=== PATIENT | female | born 1945 | race Caucasian/White ===

== ENCOUNTER 2018-03-05 12:47 | Inpatient (IN) | payer MEDICARE, OTHER ==
[2018-03-05 14:08] LABS: ADD MAN DIFF? NO
[2018-03-05 14:14] LABS: WHITE BLOOD COUNT 13.2 10^3/ul (4.8-10.8)
[2018-03-05 14:14] LABS: BASOPHILS % 0.3 % (0.0-2.0); EOSINOPHILS % 0.2 % (0.0-7.0); HEMATOCRIT 34.9 % (37.0-47.0); HEMOGLOBIN 11.6 g/dl (12.0-16.0); LYMPHOCYTES # 1.3 10^3/ul (0.8-2.9); LYMPHOCYTES % 9.6 % (15.0-51.0); MEAN CORPUSCULAR HEMOGLOBIN 32.5 pg (29.0-33.0); MEAN CORPUSCULAR HGB CONC 33.2 g/dl (32.0-37.0); MEAN CORPUSCULAR VOLUME 97.8 fl (82.0-101.0); MEAN PLATELET VOLUME 7.9 fl (7.4-10.4); MONOCYTE # 0.7 10^3/ul (0.3-0.9); NEUTROPHILS % 83.3 % (39.0-77.0); PLATELET COUNT 333 10^3/UL (140-415); RED BLOOD COUNT 3.57 10^6/ul (4.20-5.40); RED CELL DISTRIBUTION WIDTH 14.4 % (11.5-14.5)
[2018-03-05 14:32] LABS: INR 1.29; PROTIME 16.3 Sec (11.9-14.9); PT RATIO 1.3
[2018-03-05 14:33] LABS: PARTIAL THROMBOPLASTIN TIME 40.7 Sec (23.0-35.0)
[2018-03-05 14:40] LABS: BLOOD UREA NITROGEN 11 mg/dl (7-20); CALCIUM 9.5 mg/dl (8.4-10.2); CARBON DIOXIDE 31 mmol/L (21-31); CHLORIDE 98 mmol/L (97-110); CREATININE 0.54 mg/dl (0.44-1.00); GLUCOSE 109 mg/dl (70-220); POTASSIUM 3.4 mmol/L (3.5-5.1); SODIUM 135 mmol/L (135-144)
[2018-03-05] MEDS: APIXABAN 5 MG TABLET PO (16:11)
[2018-03-05] MEDS ORDERED: ONDANSETRON 4 MG INJ IV (16:30)
[2018-03-05] MEDS ORDERED: ACETAMINOPHEN 325 MG TAB PO (16:30)
[2018-03-05] MEDS: LEVOFLOXACIN 250MG/D5W (PMX) 50 ML IVPB (21:14)
[2018-03-05] MEDS: ENOXAPARIN 30 MG/0.3 ML SYG SC (21:23)
[2018-03-06] MEDS ORDERED: ONDANSETRON 4 MG INJ IV
[2018-03-06] MEDS ORDERED: ACETAMINOPHEN 325 MG TAB PO
[2018-03-06] MEDS ORDERED: morphine 2 MG INJ IV
[2018-03-06] MEDS ORDERED: DOCUSATE SODIUM 100 MG CAP PO
[2018-03-06] MEDS: LORAZEPAM 2 MG INJ IV (00:03)
[2018-03-06] MEDS: PANTOPRAZOLE (EC) 40 MG TAB PO (05:38)
[2018-03-06] MEDS: LORAZEPAM 0.5 MG TAB PO (05:38)
[2018-03-06 05:58] LABS: ADD MAN DIFF? NO
[2018-03-06 06:05] LABS: BASOPHILS % 0.4 % (0.0-2.0); EOSINOPHILS # 0.1 10^3/ul (0.0-0.5); EOSINOPHILS % 0.9 % (0.0-7.0); HEMOGLOBIN 9.8 g/dl (12.0-16.0); LYMPHOCYTES # 1.1 10^3/ul (0.8-2.9); LYMPHOCYTES % 11.5 % (15.0-51.0); MEAN CORPUSCULAR HGB CONC 33.8 g/dl (32.0-37.0); MEAN CORPUSCULAR VOLUME 97.6 fl (82.0-101.0); MONOCYTE # 0.7 10^3/ul (0.3-0.9); MONOCYTES % 7.6 % (0.0-11.0); NEUTROPHILS % 76.2 % (39.0-77.0); PLATELET COUNT 308 10^3/UL (140-415); RED BLOOD COUNT 2.97 10^6/ul (4.20-5.40); RED CELL DISTRIBUTION WIDTH 14.6 % (11.5-14.5)
[2018-03-06 06:05] LABS: WHITE BLOOD COUNT 9.2 10^3/ul (4.8-10.8)
[2018-03-06 06:36] LABS: MAGNESIUM 1.6 mg/dl (1.7-2.5)
[2018-03-06 06:58] LABS: ALANINE AMINOTRANSFERASE 77 IU/L (13-69); ALBUMIN 2.5 g/dl (3.3-4.9); ALBUMIN/GLOBULIN RATIO 0.96; ALKALINE PHOSPHATASE 223 IU/L (42-121); ASPARTATE AMINO TRANSFERASE 66 IU/L (15-46); BILIRUBIN,INDIRECT 0.4 mg/dl (0-1.1); BILIRUBIN,TOTAL 0.4 mg/dl (0.2-1.3); BLOOD UREA NITROGEN 5 mg/dl (7-20); CALCIUM 8.6 mg/dl (8.4-10.2); CARBON DIOXIDE 27 mmol/L (21-31); CHLORIDE 104 mmol/L (97-110); CREATININE 0.48 mg/dl (0.44-1.00); GLUCOSE 98 mg/dl (70-220); POTASSIUM 3.5 mmol/L (3.5-5.1); SODIUM 138 mmol/L (135-144); TOTAL PROTEIN 5.1 g/dl (6.1-8.1)
[2018-03-06 09:40] LABS: ANION GAP 7 (5-13)
[2018-03-06] MEDS: ENOXAPARIN 30 MG/0.3 ML SYG SC ×2 (09:51→20:25)
[2018-03-06 10:02] LABS: ANION GAP 6 (5-13)
[2018-03-06] MEDS: DOXYCYCLINE 100 MG TAB PO (20:15)
[2018-03-07] MEDS: PANTOPRAZOLE (EC) 40 MG TAB PO (05:27)
[2018-03-07] MEDS: DOXYCYCLINE 100 MG TAB PO ×2 (08:41→20:31)
[2018-03-07] MEDS: ENOXAPARIN 30 MG/0.3 ML SYG SC (08:43)
[2018-03-07] MEDS: ENOXAPARIN 60 MG/0.6 ML SYG SC (20:32)
[2018-03-07] MEDS: LORAZEPAM 0.5 MG TAB PO (21:18)
[2018-03-07] MEDS: HALOPERIDOL 5 MG INJ IM (23:48)
[2018-03-08] MEDS: PANTOPRAZOLE (EC) 40 MG TAB PO (06:11)
[2018-03-08 07:15] LABS: WHITE BLOOD COUNT 5.8 10^3/ul (4.8-10.8)
[2018-03-08 07:15] LABS: ABNORMAL IP MESSAGE 1; HEMATOCRIT 29.2 % (37.0-47.0); HEMOGLOBIN 9.6 g/dl (12.0-16.0); MEAN CORPUSCULAR HEMOGLOBIN 32.2 pg (29.0-33.0); MEAN CORPUSCULAR HGB CONC 32.9 g/dl (32.0-37.0); MEAN PLATELET VOLUME 7.9 fl (7.4-10.4); PLATELET COUNT 425 10^3/UL (140-415); RED BLOOD COUNT 2.98 10^6/ul (4.20-5.40); RED CELL DISTRIBUTION WIDTH 14.5 % (11.5-14.5)
[2018-03-08 07:28] LABS: ADD MAN DIFF? YES; POSITIVE DIFF @See below
[2018-03-08 07:31] LABS: ANION GAP 2 (5-13); BLOOD UREA NITROGEN 10 mg/dl (7-20); CALCIUM 8.9 mg/dl (8.4-10.2); CARBON DIOXIDE 29 mmol/L (21-31); CHLORIDE 106 mmol/L (97-110); CREATININE 0.55 mg/dl (0.44-1.00); GLUCOSE 89 mg/dl (70-220); POTASSIUM 3.4 mmol/L (3.5-5.1); SODIUM 137 mmol/L (135-144)
[2018-03-08 08:27] LABS: ANISOCYTOSIS 1+ (0-0); BASOPHIL #M 0.1 10^3/ul (0.0-0.0); BASOPHILS % (M) 3 % (0-2); ERYTHROBLAST% (NRBC) (M) 1 % (0-0); LYMPHOCYTES #M 1.3 10^3/ul (0.8-2.9); LYMPHOCYTES % (M) 24 % (15-51); METAMYELOCYTES %M 1 % (0-0); MONOCYTE #M 0.4 10^3/ul (0.3-0.9); MONOCYTES % (M) 8 % (0-11); MYELOCYTES #M 0.1 10^3/ul (0.0-0.0); MYELOCYTES % (M) 3 % (0-0); PLATELET ESTIMATE INCREASED; POLYCHROMASIA 3+ (0-0); SEGMENTED NEUTROPHILS (M) % 61 % (39-77); SMUDGE%M 4 % (0-0)
[2018-03-08] MEDS: ENOXAPARIN 60 MG/0.6 ML SYG SC ×2 (09:00→20:36)
[2018-03-08] MEDS: DOXYCYCLINE 100 MG TAB PO ×2 (09:35→20:31)
[2018-03-08 10:57] LABS: ADD UMIC NO; UR ASCORBIC ACID NEGATIVE (NEGATIVE); UR BILIRUBIN (Dip) NEGATIVE (NEGATIVE); UR BLOOD (Dip) NEGATIVE (NEGATIVE); UR CLARITY CLEAR (CLEAR); UR COLOR YELLOW (YELLOW); UR GLUCOSE (Dip) NEGATIVE (NEGATIVE); UR KETONES (Dip) NEGATIVE (NEGATIVE); UR LEUKOCYTE ESTERASE (Dip) NEGATIVE Leu/ul (NEGATIVE); UR NITRITE (Dip) NEGATIVE (NEGATIVE); UR SPECIFIC GRAVITY (Dip) 1.006 (1.003-1.030); UR TOTAL PROTEIN (Dip) NEGATIVE (NEGATIVE); UR UROBILINOGEN (Dip) NEGATIVE (NEGATIVE)
[2018-03-08] MEDS: POTASSIUM CHLORIDE (SR) 20 MEQ TAB PO (15:30)
[2018-03-09] MEDS: PANTOPRAZOLE (EC) 40 MG TAB PO (06:01)
[2018-03-09] MEDS: DOXYCYCLINE 100 MG TAB PO ×2 (09:02→21:46)
[2018-03-09] MEDS: ENOXAPARIN 60 MG/0.6 ML SYG SC ×2 (09:14→21:50)
[2018-03-10] MEDS: PANTOPRAZOLE (EC) 40 MG TAB PO (05:58)
[2018-03-10] MEDS: ENOXAPARIN 60 MG/0.6 ML SYG SC (09:39)
== END 2018-03-10 18:11 | DRG 300 ==
LOC: 2NE 03-07 15:25 → E/R 12:47 → 2NE 16:19
DX: I82.412 Acute embolism and thrombosis of left femoral vein (principal); L03.116 Cellulitis of left lower limb; C19 Malignant neoplasm of rectosigmoid junction; F03.90 Unspecified dementia, unspecified severity, without behavioral disturbance, psychotic disturbance, mood disturbance, and anxiety; D63.8 Anemia in other chronic diseases classified elsewhere; Z79.01 Long term (current) use of anticoagulants; Z88.0 Allergy status to penicillin
CPT/HCPCS: 36415; 71045; 80048; 80053; 81003; 83735; 85025; 85610; 85730; 87040; 87086; 90686; 93971; 97110; 97116; 97161; 97530; 99285-25

== ENCOUNTER 2018-10-05 14:11 | Inpatient (IN) | payer MEDICARE, OTHER ==
[2018-10-05 14:46] LABS: ADD MAN DIFF? NO
[2018-10-05 14:50] LABS: BASOPHIL # 0.1 10^3/ul (0.0-0.1); BASOPHILS % 0.7 % (0.0-2.0); EOSINOPHILS # 0.2 10^3/ul (0.0-0.5); EOSINOPHILS % 2.9 % (0.0-7.0); HEMATOCRIT 42.4 % (37.0-47.0); HEMOGLOBIN 14.3 g/dl (12.0-16.0); LYMPHOCYTES # 0.8 10^3/ul (0.8-2.9); LYMPHOCYTES % 11.9 % (15.0-51.0); MEAN CORPUSCULAR HEMOGLOBIN 29.7 pg (29.0-33.0); MEAN CORPUSCULAR HGB CONC 33.7 g/dl (32.0-37.0); MEAN PLATELET VOLUME 8.1 fl (7.4-10.4); MONOCYTE # 0.4 10^3/ul (0.3-0.9); MONOCYTES % 5.8 % (0.0-11.0); NEUTROPHIL # 5.4 10^3/ul (1.6-7.5); NEUTROPHILS % 77.8 % (39.0-77.0); PLATELET COUNT 581 10^3/UL (140-415); RED BLOOD COUNT 4.82 10^6/ul (4.20-5.40); RED CELL DISTRIBUTION WIDTH 13.2 % (11.5-14.5)
[2018-10-05 14:50] LABS: WHITE BLOOD COUNT 6.9 10^3/ul (4.8-10.8)
[2018-10-05] MEDS: SOD CHLORIDE 0.9% 1,000 ML IV ×2 (14:55→17:51)
[2018-10-05 15:07] LABS: ALANINE AMINOTRANSFERASE 15 IU/L (13-69); ALBUMIN 3.7 g/dl (3.3-4.9); ALBUMIN/GLOBULIN RATIO 1.15; ALKALINE PHOSPHATASE 224 IU/L (42-121); ANION GAP 10 (5-13); ASPARTATE AMINO TRANSFERASE 48 IU/L (15-46); BILIRUBIN,INDIRECT 0.6 mg/dl (0-1.1); BILIRUBIN,TOTAL 0.6 mg/dl (0.2-1.3); BLOOD UREA NITROGEN 11 mg/dl (7-20); CALCIUM 10.1 mg/dl (8.4-10.2); CARBON DIOXIDE 26 mmol/L (21-31); CHLORIDE 99 mmol/L (97-110); CREATININE 0.94 mg/dl (0.44-1.00); GLUCOSE 112 mg/dl (70-220); POTASSIUM 5.2 mmol/L (3.5-5.1); SODIUM 135 mmol/L (135-144); TOTAL PROTEIN 6.9 g/dl (6.1-8.1)
[2018-10-05 15:11] LABS: INR 1.03; PROTIME 13.6 Sec (11.9-14.9); PT RATIO 1.1
[2018-10-05 15:12] LABS: PARTIAL THROMBOPLASTIN TIME 40.6 Sec (23.0-35.0)
[2018-10-05 15:19] LABS: TROPONIN-I < 0.012 ng/ml (0.000-0.120)
[2018-10-05 15:24] LABS: FREE THYROXINE INDEX (Calc) 1.29 ug/ml (0.65-3.89); T3 UPTAKE 26.3 % (23.5-40.5); T4 (THYROXINE) 4.9 ug/dl (5.5-11.0)
[2018-10-05] MEDS ORDERED: ONDANSETRON 4 MG INJ IV (18:00)
[2018-10-05] MEDS ORDERED: ACETAMINOPHEN 325 MG TAB PO (18:00)
[2018-10-05] MEDS ORDERED: NACL 0.9% 3 ML SYG IV (18:00)
[2018-10-05] MEDS: FAMOTIDINE 20 MG INJ IV (22:14)
[2018-10-06] MEDS: SOD CHLORIDE 0.9% 1,000 ML IV ×3 (01:51→16:46)
[2018-10-06 06:22] LABS: ADD MAN DIFF? NO
[2018-10-06 06:58] LABS: ANION GAP 8 (5-13); BLOOD UREA NITROGEN 8 mg/dl (7-20); CALCIUM 7.8 mg/dl (8.4-10.2); CARBON DIOXIDE 22 mmol/L (21-31); CHLORIDE 111 mmol/L (97-110); CREATININE 0.62 mg/dl (0.44-1.00); GLUCOSE 87 mg/dl (70-220); POTASSIUM 3.6 mmol/L (3.5-5.1); SODIUM 141 mmol/L (135-144)
[2018-10-06 07:16] LABS: BASOPHILS % 0.4 % (0.0-2.0); EOSINOPHILS # 0.3 10^3/ul (0.0-0.5); EOSINOPHILS % 3.2 % (0.0-7.0); HEMATOCRIT 33.3 % (37.0-47.0); HEMOGLOBIN 11.3 g/dl (12.0-16.0); LYMPHOCYTES # 0.7 10^3/ul (0.8-2.9); LYMPHOCYTES % 7.2 % (15.0-51.0); MEAN CORPUSCULAR HEMOGLOBIN 30.4 pg (29.0-33.0); MEAN CORPUSCULAR HGB CONC 33.9 g/dl (32.0-37.0); MEAN CORPUSCULAR VOLUME 89.5 fl (82.0-101.0); MEAN PLATELET VOLUME 8.3 fl (7.4-10.4); MONOCYTE # 0.5 10^3/ul (0.3-0.9); MONOCYTES % 5.9 % (0.0-11.0); NEUTROPHIL # 7.6 10^3/ul (1.6-7.5); NEUTROPHILS % 82.9 % (39.0-77.0); PLATELET COUNT 457 10^3/UL (140-415); RED BLOOD COUNT 3.72 10^6/ul (4.20-5.40); RED CELL DISTRIBUTION WIDTH 13.1 % (11.5-14.5)
[2018-10-06 07:16] LABS: WHITE BLOOD COUNT 9.2 10^3/ul (4.8-10.8)
[2018-10-06 07:46] LABS: HEMOGLOBIN A1C 5.3 % (0-5.9)
[2018-10-06] MEDS: FAMOTIDINE 20 MG INJ IV ×2 (09:22→21:48)
[2018-10-06] MEDS: ENOXAPARIN 30 MG/0.3 ML SYG SC (09:27)
[2018-10-06] MEDS: ONDANSETRON 4 MG INJ IV (12:15)
[2018-10-06] MEDS: LORAZEPAM 2 MG INJ IV (12:26)
[2018-10-06] MEDS: IOHEXOL 300MG/ML 150 ML BTL (12:59)
[2018-10-06] MEDS: SOD CHLORIDE 0.9% 100 ML (12:59)
[2018-10-06] MEDS: morphine 2 MG INJ IV (17:04)
[2018-10-07] MEDS: SOD CHLORIDE 0.9% 1,000 ML IV ×2 (00:31→09:51)
[2018-10-07 06:43] LABS: ANION GAP 5 (5-13); BLOOD UREA NITROGEN 4 mg/dl (7-20); CALCIUM 9.1 mg/dl (8.4-10.2); CARBON DIOXIDE 27 mmol/L (21-31); CHLORIDE 117 mmol/L (97-110); CREATININE 0.76 mg/dl (0.44-1.00); GLUCOSE 98 mg/dl (70-220); POTASSIUM 3.2 mmol/L (3.5-5.1); SODIUM 149 mmol/L (135-144)
[2018-10-07] MEDS: FAMOTIDINE 20 MG INJ IV ×2 (09:29→20:24)
[2018-10-07] MEDS: ENOXAPARIN 30 MG/0.3 ML SYG SC (09:34)
[2018-10-07] MEDS: D5W-0.45 NACL + KCL 20 MEQ 1,000 ML IV ×2 (11:06→21:07)
[2018-10-08 06:39] LABS: ANION GAP 8 (5-13); BLOOD UREA NITROGEN 3 mg/dl (7-20); CALCIUM 8.6 mg/dl (8.4-10.2); CARBON DIOXIDE 23 mmol/L (21-31); CHLORIDE 114 mmol/L (97-110); CREATININE 0.59 mg/dl (0.44-1.00); GLUCOSE 91 mg/dl (70-220); POTASSIUM 4.2 mmol/L (3.5-5.1); SODIUM 145 mmol/L (135-144)
[2018-10-08] MEDS: D5W-0.45 NACL + KCL 20 MEQ 1,000 ML IV ×2 (06:53→18:02)
[2018-10-08] MEDS: FAMOTIDINE 20 MG INJ IV ×2 (09:39→20:10)
[2018-10-08] MEDS: ENOXAPARIN 30 MG/0.3 ML SYG SC (09:40)
[2018-10-08] MEDS: ACETAMINOPHEN 325 MG TAB PO (21:31)
[2018-10-09 07:32] LABS: ANION GAP 5 (5-13); BLOOD UREA NITROGEN 7 mg/dl (7-20); CALCIUM 8.2 mg/dl (8.4-10.2); CARBON DIOXIDE 25 mmol/L (21-31); CHLORIDE 109 mmol/L (97-110); GLUCOSE 114 mg/dl (70-220); SODIUM 139 mmol/L (135-144)
[2018-10-09] MEDS: FAMOTIDINE 20 MG INJ IV (09:01)
[2018-10-09] MEDS: ENOXAPARIN 30 MG/0.3 ML SYG SC (09:03)
[2018-10-09] MEDS: D5W-0.45 NACL + KCL 20 MEQ 1,000 ML IV (10:19)
== END 2018-10-09 17:55 | DRG 543 ==
LOC: E/R 14:11 → 2NE 17:47
DX: M84.522A Pathological fracture in neoplastic disease, left humerus, initial encounter for fracture (principal); Z68.1 Body mass index [BMI] 19.9 or less, adult; C19 Malignant neoplasm of rectosigmoid junction; R64 Cachexia; C79.51 Secondary malignant neoplasm of bone; E46 Unspecified protein-calorie malnutrition; E86.0 Dehydration; F03.90 Unspecified dementia, unspecified severity, without behavioral disturbance, psychotic disturbance, mood disturbance, and anxiety; D63.8 Anemia in other chronic diseases classified elsewhere; F41.9 Anxiety disorder, unspecified; R62.7 Adult failure to thrive; F32.9 Major depressive disorder, single episode, unspecified
CPT/HCPCS: 36415; 71045; 71260; 73060; 74177; 80048; 80053; 83036; 84436; 84479; 84484; 85025; 85610; 85730; 87040-91; 87081; 93005; 93923; 93971; 99285-25